=== PATIENT | female | born 1980 | race Caucasian/White ===

== ENCOUNTER 2018-04-13 08:10 | Emergency (ER) | payer SELFPAY ==
[~2018-04-13] VITALS: Ht 165.1 cm; Wt 70.3 kg
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
[2018-04-13] MEDS ORDERED: CYCLOBENZAPRINE10 M1 PO (09:23)
[2018-04-13] MEDS ORDERED: PERCOCET 5-3251 EACH PO (09:23)
[2018-04-13 09:28] VITALS: BP 120/70
== END 2018-04-13 09:29 ==
LOC: ERH 08:10
DX: R51 Headache (principal)